=== PATIENT | female | born 1970 | race Caucasian/White ===

== ENCOUNTER 2020-11-30 14:17 | Inpatient (IN) ==
[2020-11-30] MEDS ORDERED: SODIUM CHLORIDE 0.9% 1000ML 1,000 ML IV ONE (14:37)
[2020-11-30] MEDS ORDERED: ONDANSETRON INJ 2 MG/ML 2 ML VIAL IV STA (14:37)
[2020-11-30] MEDS ORDERED: KETOROLAC TROMETHAMINE 15 MG/ML VIAL IV STA (14:37)
[2020-11-30 14:44] LABS: Basophils # (auto) 0.05 K/uL (0-0.2); Basophils % (auto) 0.4 %; Eosinophils # (auto) 0.36 K/uL (0-0.5); Eosinophils % (auto) 3.1 %; Hemoglobin 13.9 g/dL (12.0-16.0); Immature Granulocytes # (auto) 0.03 K/uL (0.00-0.02); Immature Granulocytes % (auto) 0.3 %; Lymphocytes # (auto) 3.93 K/uL (1.2-3.4); Lymphocytes % (auto) 34.3 %; Mean Corpuscular Hemoglobin 29.1 pg (25-34); Mean Corpuscular Hgb Conc 33.1 g/dL (32-36); Mean Corpuscular Volume 87.9 fL (80-100); Mean Platelet Volume 9.9 fL (7.4-10.4); Monocytes # (auto) 0.67 K/uL (0.11-0.59); Monocytes % (auto) 5.8 %; Neutrophils # (auto) 6.42 K/uL (1.4-6.5); Neutrophils % (auto) 56.1 %; Platelet Count 458 K/uL (130-400); RDW Coefficient of Variation 12.5 % (11.5-14.5); RDW Standard Deviation 40.3 fL (36.4-46.3); Red Blood Count 4.78 M/uL (4.2-5.4); White Blood Count 11.46 K/uL (4.8-10.8)
[2020-11-30 15:02] LABS: Albumin Level 3.3 gm/dl (3.4-5.0); BUN Creatinine Ratio 14.6 (10-20); Bilirubin Direct 0.1 mg/dl (0-0.2); Calcium 9.1 mg/dl (8.5-10.1); Creatinine Clr Calc Pharmacy 72.8 ml/min; Est GFR (African American) 74.3 ml/min; Est GFR (Non-African American) 64.1 ml/min
[2020-11-30 15:05] LABS: Bilirubin,Total 0.3 mg/dl (0.2-1); Total Protein 7.5 gm/dl (6.4-8.2)
[2020-11-30 15:06] LABS: Appearance Urine Cloudy (Clear); Bacteria Urine Automated Negative (Negative); Bilirubin Urine Negative (Negative); Blood Urine 3+ (Negative); Color Urine Dark Yellow; Epithelial Cell Urine Auto >30 /lpf (0-5); Glucose Urine UA Negative (Negative); Ketones Urine Trace (Negative); Leukocyte Esterase Urine Trace (Negative); Nitrite Urine Negative (Negative); Protein Urine 1+ (Negative); Specific Gravity Urine 1.024 (1.000-1.030); Urobilinogen Urine Negative (Negative); pH Urine 6.5 (4.5-7.5)
[2020-11-30 15:47] LABS: RBC Urine Automated >30 /hpf (0-4)
[2020-11-30 15:48] LABS: Cast Urine Automated 0 /lpf (0-5)
--- NOTE | 2020-11-30 16:02 | CT Scan Report ---
CT SCAN OF THE ABDOMEN AND PELVIS WITHOUT CONTRAST CLINICAL HISTORY: L flank pain dysuria COMPARISON STUDY: No previous studies for comparison. TECHNIQUE: CT scan of the abdomen and pelvis was performed from the lung bases to the proximal femurs . Images are reviewed in the axial, sagittal, and coronal planes. IV contrast was not administered fo r this examination. A dose lowering technique was utilized adhering to the principles of ALARA. CT DOSE: 474.44 mGy.cm FINDINGS: Lower chest: The heart is normal in size and configuration, without pericardial effusion. The lung ba ses and pleural spaces are clear. Liver: The unenhanced liver is normal in size, contour, and attenuation. There is no intrahepatic nikia iary ductal dilatation. Gallbladder: Is surgically absent Spleen: Normal in size and attenuation. Pancreas: Unremarkable. Adrenal glands: Unremarkable. Kidneys: The unenhanced kidneys are normal in. No hydronephrosis or nephrolithiasis is seen on the ri ght. Mild hydronephrosis is seen within left kidney as well as calculus within inferior aspect of the left renal pelvis. There is 8mm calculus within proximal left ureter is seen. Distal aspect of the l eft ureter is nondilated.. Bowel: Bowel loops are nondilated. Appendix is not well seen. Peritoneum: There is no intraperitoneal free air or abdominal ascites. Vasculature: The abdominal aorta is normal in course and caliber. Adenopathy: None. Pelvic viscera: Urinary bladder is partially decompressed which limits evaluation. There is prominent , nodular lower uterine segment is seen. Evaluation is limited on current nondedicated exam. Skeletal structures: Multilevel Schmorl nodes are seen. Sclerotic lesion is seen within right ischial bone (3/401) and might represent enostosis versus other etiology. IMPRESSION: 1. 8 mm obstructive calculus within proximal aspect of the left urinary collecting system associated with minimal hydronephrosis on the left. Also calculus is seen within left renal pelvis. 2. Prominent lower uterine segment. Evaluation is limited on this nondedicated exam. Please correlat e above-mentioned findings with ALLERGIST IMMUNOLOGIST evaluation on nonemergency basis. ACT 112: Positive. There are findings on this exam that require communication between the performing entity and the patient following Patient Test Result Information Act ([place] Act 112) guidelines. The above report was generated using voice recognition software. It may contain grammatical, syntax o r spelling errors. Electronically signed by: Pepper Munguia DO 11/30/2020 4:01 PM
--- NOTE | 2020-11-30 17:33 | History & Physical Report ---
Date of Service November 30, 2020 Assessment & Plan (1) Calculus of proximal left ureter: 8 mm proximal left ureteral calculus/mild left hydronephrosis- N.p.o. after midnight Follow urine culture sensitivity Ceftriaxone 2 g IV daily [place] 5/325, 1 p.o. every 6 hours as needed moderate pain [place] 5/325, 2 p.o. every 6 hours as needed for severe pain Dilaudid 0.25 mg IV every 3 hours as needed moderate pain Dilaudid 0.5 mg IV every 3 hours as needed severe pain Zofran 4 mg IV every 6 hours as needed NSS + KCl 20 mEq at 100 mils per hour Consult urology Present on Admission?: Yes (2) Hydronephrosis, left: See above Present on Admission?: Yes (3) Multiple sclerosis: Continue usual medications: Duloxetine, gabapentin, modafinil, mag oxide, riboflavin and HRT. Present on Admission?: Yes History of Present Illness Chief Complaint: The patient presents to the emergency department with complaint of acute onset of left flank pain and nausea and vomiting earlier in the day today prior to arrival Primary Care Provider: NO PCP The patient is a 50-year-old female with a past medical history including multiple sclerosis, family history of mother with kidney stones, who presents to the emergency department with above symptoms. Work-up in the emergency department included a CT scan of abdomen pelvis which showed an 8 mm proximal left ureteral calculus and mild left hydronephrosis. There was also noted a prominent lower uterine segment, with recommendation for outpatient MANAGER ADOBE assessment Allergies Allergy/AdvReac Type Severity Reaction Status Date / Time No Known Allergies Allergy Verified 11/30/20 16:09 Home Medications Medication Instructions Recorded Confirmed Type duloxetine 60 mg PO DAILY 11/30/20 11/30/20 History gabapentin 400 mg PO QID 11/30/20 11/30/20 History levonorgestrel-ethinyl estrad 1 tab PO DAILY 11/30/20 11/30/20 History magnesium oxide 400 mg PO DAILY 11/30/20 11/30/20 History modafinil [Provigil] 200 mg PO DAILY 11/30/20 11/30/20 History multivitamin 1 tab PO DAILY 11/30/20 11/30/20 History riboflavin (vitamin B2) 400 mg PO DAILY 11/30/20 11/30/20 History Past Med/Surg History Medical History (Updated 11/30/20 @ 17:32 by Todd Vargas MD) Multiple sclerosis Social History Smoking Status: Never smoker Feels Safe at Home: Yes Review of Systems Review of Systems: The patient denies chest pain, palpitations, shortness of breath, dyspnea on exertion, cough, lower extremity swelling, sore throat, fevers, chills, sweats, diarrhea , constipation, blood in urine or stool, dysuria, urinary frequency or urgency, lightheadedness, dizziness, headache, memory loss, loss of consciousness, rash, abnormal bruising or bleeding, imbalance, focal or generalized weakness, numbness or tingling in arms or legs, generalized arthralgias or myalgias, neck pain, or night sweats. The review of systems is otherwise negative other than for that already noted above, and at least 10 systems have been reviewed. Physical Exam Physical Exam: The patient is awake, alert and oriented 3, well developed and well nourished, normocephalic and atraumatic, lying in bed and in no acute distress. HEENT--PERRL, EOMI, mucous membranes and oropharynx normal. Neck--supple. No JVD. No bruits. Thyroid normal, trachea midline, no adenopathy. Heart--normal S1 and S2. No murmurs, rubs or gallops. Lungs--clear bilaterally, no respiratory distress, no accessory muscle use. Abdomen--normal bowel sounds and soft. Nontender. Nondistended. Mildly obese Extremities--no cyanosis or clubbing. No edema. Dermatologic--normal skin turgor, normal color, no abnormal lymph nodes, no rash. Neurologic--cranial nerves II through XII grossly intact. Rheumatologic--normal range of motion. Psychiatric--normal affect. Results & Data Results & Data ([facility]) Vital Signs (Past 12 Hours) Vital Signs Temp Pulse Resp BP Pulse Ox 11/30/20 14:19 97.7 F 113 H 18 169/79 H 97 Laboratory Results Laboratory Results WBC 11.46 K/uL (4.8-10.8) H 11/30/20 14:35 RBC 4.78 M/uL (4.2-5.4) 11/30/20 14:35 Hgb 13.9 g/dL (12.0-16.0) 11/30/20 14:35 Hct 42.0 % (37-47) 11/30/20 14:35 MCV 87.9 fL (80-100) 11/30/20 14:35 MCH 29.1 pg (25-34) 11/30/20 14:35 MCHC 33.1 g/dL (32-36) 11/30/20 14:35 RDW Std Deviation 40.3 fL (36.4-46.3) 11/30/20 14:35 RDW Coeff of Janna 12.5 % (11.5-14.5) 11/30/20 14:35 Plt Count 458 K/uL (130-400) H 11/30/20 14:35 MPV 9.9 fL (7.4-10.4) 11/30/20 14:35 Immature Gran % (Auto) 0.3 % 11/30/20 14:35 Neut % (Auto) 56.1 % 11/30/20 14:35 Lymph % (Auto) 34.3 % 11/30/20 14:35 [place] % (Auto) 5.8 % 11/30/20 14:35 Eos % (Auto) 3.1 % 11/30/20 14:35 Baso % (Auto) 0.4 % 11/30/20 14:35 Neut # (Auto) 6.42 K/uL (1.4-6.5) 11/30/20 14:35 Lymph # (Auto) 3.93 K/uL (1.2-3.4) H 11/30/20 14:35 [place] # (Auto) 0.67 K/uL (0.11-0.59) H 11/30/20 14:35 Eos # (Auto) 0.36 K/uL (0-0.5) 11/30/20 14:35 Baso # (Auto) 0.05 K/uL (0-0.2) 11/30/20 14:35 Immature Gran # (Auto) 0.03 K/uL (0.00-0.02) H 11/30/20 14:35 Sodium 139 mmol/L (136-145) 11/30/20 14:35 Potassium 4.0 mmol/L (3.5-5.1) 11/30/20 14:35 Chloride 107 mmol/L (98-107) 11/30/20 14:35 Carbon Dioxide 29 mmol/L (21-32) 11/30/20 14:35 Anion Gap 3.0 (3-11) 11/30/20 14:35 BUN 15 mg/dl (7-18) 11/30/20 14:35 Creatinine 1.02 mg/dl (0.6-1.2) 11/30/20 14:35 Est Cr Clr Drug Dosing 72.8 ml/min 11/30/20 14:35 Est GFR ( Amer) 74.3 ml/min 11/30/20 14:35 Est GFR (Non-Af Amer) 64.1 ml/min 11/30/20 14:35 BUN/Creatinine Ratio 14.6 (10-20) 11/30/20 14:35 Glucose 120 mg/dl (70-99) H 11/30/20 14:35 Calcium 9.1 mg/dl (8.5-10.1) 11/30/20 14:35 Total Bilirubin 0.3 mg/dl (0.2-1) 11/30/20 14:35 Direct Bilirubin 0.1 mg/dl (0-0.2) 11/30/20 14:35 AST 9 U/L (15-37) L 11/30/20 14:35 ALT 17 U/L (12-78) 11/30/20 14:35 Alkaline Phosphatase 119 U/L (45-117) H 11/30/20 14:35 Total Protein 7.5 gm/dl (6.4-8.2) 11/30/20 14:35 Albumin 3.3 gm/dl (3.4-5.0) L 11/30/20 14:35 Lipase 167 U/L (73-393) 11/30/20 14:35 Urine Color Dark Yellow 11/30/20 14:45 Urine Appearance Cloudy (Clear) A 11/30/20 14:45 Urine pH 6.5 (4.5-7.5) 11/30/20 14:45 Ur Specific [place] 1.024 (1.000-1.030) 11/30/20 14:45 Urine Protein 1+ (Negative) H 11/30/20 14:45 Urine Glucose (UA) Negative (Negative) 11/30/20 14:45 Urine Ketones Trace (Negative) H 11/30/20 14:45 Urine Blood 3+ (Negative) H 11/30/20 14:45 Urine Nitrite Negative (Negative) 11/30/20 14:45 Urine Bilirubin Negative (Negative) 11/30/20 14:45 Urine Urobilinogen Negative (Negative) 11/30/20 14:45 Ur Leukocyte Esterase Trace (Negative) H 11/30/20 14:45 Urine WBC (Auto) 1-5 /hpf (0-5) 11/30/20 14:45 Urine RBC (Auto) >30 /hpf (0-4) H 11/30/20 14:45 U Hyaline Cast (Auto) 0 /lpf (0-5) 11/30/20 14:45 U Epithel Cells (Auto) >30 /lpf (0-5) H 11/30/20 14:45 Urine Bacteria (Auto) Negative (Negative) 11/30/20 14:45 Urine Yeast Not Reportable 11/30/20 14:45 POC Ur Test NEG (NEG) 11/30/20 14:45 COVID-19 Eval Order Covid19 at [facility] 11/30/20 17:15 Impressions Abdomen/Pelvis CT 11/30/20 14:37 CT SCAN OF THE ABDOMEN AND PELVIS WITHOUT CONTRAST CLINICAL HISTORY: L flank pain dysuria COMPARISON STUDY: No previous studies for comparison. TECHNIQUE: CT scan of the abdomen and pelvis was performed from the lung bases to the proximal femurs. Images are reviewed in the axial, sagittal, and coronal planes. IV contrast was not administered for this examination. A dose lowering technique was utilized adhering to the principles of ALARA. CT DOSE: 474.44 mGy.cm FINDINGS: Lower chest: The heart is normal in size and configuration, without pericardial effusion. The lung bases and pleural spaces are clear. Liver: The unenhanced liver is normal in size, contour, and attenuation. There is no intrahepatic biliary ductal dilatation. Gallbladder: Is surgically absent Spleen: Normal in size and attenuation. Pancreas: Unremarkable. Adrenal glands: Unremarkable. Kidneys: The unenhanced kidneys are normal in. No hydronephrosis or nephrolithiasis is seen on the right. Mild hydronephrosis is seen within left kidney as well as calculus within inferior aspect of the left renal pelvis. There is 8mm calculus within proximal left ureter is seen. Distal aspect of the left ureter is nondilated.. Bowel: Bowel loops are nondilated. Appendix is not well seen. Peritoneum: There is no intraperitoneal free air or abdominal ascites. Vasculature: The abdominal aorta is normal in course and caliber. Adenopathy: None. Pelvic viscera: Urinary bladder is partially decompressed which limits evaluation. There is prominent, nodular lower uterine segment is seen. Evaluation is limited on current nondedicated exam. Skeletal structures: Multilevel Schmorl nodes are seen. Sclerotic lesion is seen within right ischial bone (3/401) and might represent enostosis versus other etiology. IMPRESSION: 1. 8 mm obstructive calculus within proximal aspect of the left urinary collecting system associated with minimal hydronephrosis on the left. Also calculus is seen within left renal pelvis. 2. Prominent lower uterine segment. Evaluation is limited on this nondedicated exam. Please correlate above-mentioned findings with MANAGER ADOBE evaluation on nonemergency basis. ACT 112: Positive. There are findings on this exam that require communication between the performing entity and the patient following Patient Test Result Information Act ([place] Act 112) guidelines. The above report was generated using voice recognition software. It may contain grammatical, syntax or spelling errors. Electronically signed by: Pepper Munguia DO 11/30/2020 4:01 PM Code Status & VTE Plan Code Status Full code VTE Prophylaxis Plan VTE Prophylaxis will be ordered: Yes PG Care Time/CCT Total # of Minutes Spent Total Time Spent with Patient: Total time spent is greater than 50% in coordination of care (as documented) at patient's floor/unit and/or counseling patient: Coding Level of Care Code 86714 Initial Inpt Care Lvl 2 Diagnoses Calculus of proximal left ureter N20.1 Hydronephrosis, left N13.30 Multiple sclerosis G35
--- NOTE | 2020-11-30 18:15 | Emergency Department Note ---
History of Present Illness General Chief Complaint: Flank Pain Stated Complaint: LEFT SIDED FLANK PAIN,NAUSEA Time Seen by Provider: 11/30/20 14:23 History of Present Illness Provider Complaint: flank pain (L) Onset (ago): 1 week(s) Pain Consistency: intermittent Location: L flank Severity: moderate Maximum Pain Intensity: 8 Current Pain Intensity: 6 Quality: + stabbing and + sharp Relieved By: + nothing Exacerbated By: + nothing Context: no foreign travel, no possible food poisoning, no sick contacts, no recent antibiotic use, no recent surgery/procedure and no recent injury Associated Symptoms: + nausea, + vomiting, + dysuria and + back pain; no diarrhea, no fever, no chills, no constipation, no hematemesis, no hematochezia, no melena, no hematuria, no anorexia, no syncope, no headache, no neck pain, no chest pain, no weakness and no numbness Home Medications Medication Instructions Recorded Confirmed Type duloxetine 60 mg PO DAILY 11/30/20 11/30/20 History gabapentin 400 mg PO QID 11/30/20 11/30/20 History levonorgestrel-ethinyl estrad 1 tab PO DAILY 11/30/20 11/30/20 History magnesium oxide 400 mg PO DAILY 11/30/20 11/30/20 History modafinil [Provigil] 200 mg PO DAILY 11/30/20 11/30/20 History multivitamin 1 tab PO DAILY 11/30/20 11/30/20 History riboflavin (vitamin B2) 400 mg PO DAILY 11/30/20 11/30/20 History Allergies Allergy/AdvReac Type Severity Reaction Status Date / Time No Known Allergies Allergy Verified 11/30/20 16:09 Past Med/Surg History Medical History Multiple sclerosis No pertinent family history Surgical History No pertinent past surgical history Social History Smoking Status: Never smoker Feels Safe at Home: Yes Review of Systems A total of 10 systems reviewed and were otherwise negative Physical Exam Vital Signs: Vital Signs - 24 hr 11/30/20 14:19 11/30/20 16:17 Temperature 36.5 C Temperature Source Temporal Artery Sc an Pulse Rate 113 H Pulse Rate [Finger ] 82 Pulse Rhythm Regular Pulse Strength Normal Respiratory Rate 18 20 Respiratory Effort / Characteristics Non-Labored Sponta neous Respiratory Depth Normal Blood Pressure 169/79 H Blood Pressure [Le ft Arm] 138/88 Blood Pressure Raisa n 109 Blood Pressure Raisa n [Left Arm] 104 Pulse Oximetry 97 98 Oxygen Delivery Me thod Room Air Sepsis Recent Feve r Within 48 Hours No Sepsis New/Unexpla ined Change in Men buffy Status No Sepsis Action Take n by Nursing No Action Required Physical Exam: Physical Exam GENERAL: She is oriented to person, place, and time. She appears well-developed and well-nourished. She does not appear distressed. HENT: Exam performed. -Head: Normocephalic and atraumatic. -Right Ear: External ear normal. No mastoid tenderness. -Left Ear: External ear normal. No mastoid tenderness. -Mouth/Throat: The oropharynx is clear and moist. No trismus in the jaw. No dental abscesses or uvula swelling. No oropharyngeal exudate or tonsillar abscesses. EYES: Conjunctivae and EOM are normal. Pupils are equal, round, and reactive to light. Right eye exhibits no discharge. Left eye exhibits no discharge. No scleral icterus. NECK: Normal range of motion. Neck supple. No JVD present. No spinous process tenderness present. No carotid bruit present. No rigidity. No tracheal deviation and normal range of motion present. No Brudzinski's sign and no Kernig's sign noted. CV: Normal rate, regular rhythm, normal heart sounds and intact distal pulses. There is no peripheral edema. Palpable radial pulses bue. PULM/CHEST: Effort normal and breath sounds normal. No respiratory distress. No stridor. She has no wheezes. She has no rales. -Chest Wall: She exhibits no tenderness. ABD: The abdomen is soft. Bowel sounds are normal. She has no distension. No mass is present. There is no tenderness. There is no rebound, no guarding, no Little's sign and no tenderness at McBurney's point. Rovsig negative MUSC/SKEL: Normal range of motion. There is no peripheral edema, tenderness or deformity. LYMPH: No cervical adenopathy. NEURO: She is alert and oriented to person, place, and time. She has normal strength. No cranial nerve deficit or sensory deficit. Coordination and gait normal. GCS eye subscore is 4. GCS verbal subscore is 5. GCS motor subscore is 6. Cerebellar tests wnl. SKIN: Skin is warm and dry. She is not diaphoretic. PSYCH: She has a normal mood and affect. Behavior is normal. Judgment and thought content normal. Course Course 1423: The patient was evaluated in room C11. A complete history and physical exam was performed Cardiac monitoring: An order was placed for continuous cardiac monitoring. The monitor shows a rate of 80 with sinus rhythm 1635: Vital signs stable. Labs show a 8 mm kidney stone in left ureter with resulting hydroureteronephrosis. Patient states her pain is better after the Toradol and Zofran but she is afraid that the pain will return. Is unlikely the patient will pass the stone on her own. Patient does not have good follow-up as she has no PCP in the area or history of kidney stones and her urologist. [facility] for [facility] control and urology evaluation. Dr. Nelson notified. Administered Medications Discontinued Medications Sodium Chloride (Nss 1000ml) 1,000 mls @ 999 mls/hr IV .Q1H1M ONE Stop: 11/30/20 15:37 Last Infusion: 11/30/20 15:50 Dose: 0 mls/hr Documented by: [id number] Admin: 11/30/20 14:48 Dose: 999 mls/hr Documented by: [id number] Ketorolac Tromethamine (Ketorolac Tromethamine 15 Mg/Ml Vial) 15 mg IV NOW STA Stop: 11/30/20 14:38 Last Admin: 11/30/20 14:48 Dose: 15 mg Documented by: [id number] Ondansetron HCl (Ondansetron Inj 2 Mg/Ml 2 Ml Vial) 4 mg IV NOW STA Stop: 11/30/20 14:38 Last Admin: 11/30/20 14:48 Dose: 4 mg Documented by: [id number] Medical Decision Making Laboratory Data Result diagrams: 11/30/20 14:35 11/30/20 14:35 Lab Results 11/30/20 11/30/20 11/30/20 Range/Units 14:35 14:35 14:45 WBC 11.46 H (4.8-10.8) K/uL RBC 4.78 (4.2-5.4) M/uL Hgb 13.9 (12.0-16.0) g/dL Hct 42.0 (37-47) % MCV 87.9 (80-100) fL MCH 29.1 (25-34) pg MCHC 33.1 (32-36) g/dL RDW Std Deviation 40.3 (36.4-46.3) fL RDW Coeff of Janna 12.5 (11.5-14.5) % Plt Count 458 H (130-400) K/uL MPV 9.9 (7.4-10.4) fL Immature Gran % (Auto) 0.3 % Neut % (Auto) 56.1 % Lymph % (Auto) 34.3 % [place] % (Auto) 5.8 % Eos % (Auto) 3.1 % Baso % (Auto) 0.4 % Neut # (Auto) 6.42 (1.4-6.5) K/uL Lymph # (Auto) 3.93 H (1.2-3.4) K/uL [place] # (Auto) 0.67 H (0.11-0.59) K/uL Eos # (Auto) 0.36 (0-0.5) K/uL Baso # (Auto) 0.05 (0-0.2) K/uL Immature Gran # (Auto) 0.03 H (0.00-0.02) K/uL Sodium 139 (136-145) mmol/L Potassium 4.0 (3.5-5.1) mmol/L Chloride 107 (98-107) mmol/L Carbon Dioxide 29 (21-32) mmol/L Anion Gap 3.0 (3-11) BUN 15 (7-18) mg/dl Creatinine 1.02 (0.6-1.2) mg/dl Est Cr Clr Drug Dosing 72.8 ml/min Est GFR ( Amer) 74.3 ml/min Est GFR (Non-Af Amer) 64.1 ml/min BUN/Creatinine Ratio 14.6 (10-20) Glucose 120 H (70-99) mg/dl Calcium 9.1 (8.5-10.1) mg/dl Total Bilirubin 0.3 (0.2-1) mg/dl Direct Bilirubin 0.1 (0-0.2) mg/dl AST 9 L (15-37) U/L ALT 17 (12-78) U/L Alkaline Phosphatase 119 H (45-117) U/L Total Protein 7.5 (6.4-8.2) gm/dl Albumin 3.3 L (3.4-5.0) gm/dl Lipase 167 (73-393) U/L Urine Color Dark Yellow Urine Appearance Cloudy A (Clear) Urine pH 6.5 (4.5-7.5) Ur Specific [place] 1.024 (1.000-1.030) Urine Protein 1+ H (Negative) Urine Glucose (UA) Negative (Negative) Urine Ketones Trace H (Negative) Urine Blood 3+ H (Negative) Urine Nitrite Negative (Negative) Urine Bilirubin Negative (Negative) Urine Urobilinogen Negative (Negative) Ur Leukocyte Esterase Trace H (Negative) Urine WBC (Auto) 1-5 (0-5) /hpf Urine RBC (Auto) >30 H (0-4) /hpf U Hyaline Cast (Auto) 0 (0-5) /lpf U Epithel Cells (Auto) >30 H (0-5) /lpf Urine Bacteria (Auto) Negative (Negative) Urine Yeast Not Reportable POC Ur Test (NEG) COVID-19 Eval Order 11/30/20 11/30/20 Range/Units 14:45 17:15 WBC (4.8-10.8) K/uL RBC (4.2-5.4) M/uL Hgb (12.0-16.0) g/dL Hct (37-47) % MCV (80-100) fL MCH (25-34) pg MCHC (32-36) g/dL RDW Std Deviation (36.4-46.3) fL RDW Coeff of Janna (11.5-14.5) % Plt Count (130-400) K/uL MPV (7.4-10.4) fL Immature Gran % (Auto) % Neut % (Auto) % Lymph % (Auto) % [place] % (Auto) % Eos % (Auto) % Baso % (Auto) % Neut # (Auto) (1.4-6.5) K/uL Lymph # (Auto) (1.2-3.4) K/uL [place] # (Auto) (0.11-0.59) K/uL Eos # (Auto) (0-0.5) K/uL Baso # (Auto) (0-0.2) K/uL Immature Gran # (Auto) (0.00-0.02) K/uL Sodium (136-145) mmol/L Potassium (3.5-5.1) mmol/L Chloride (98-107) mmol/L Carbon Dioxide (21-32) mmol/L Anion Gap (3-11) BUN (7-18) mg/dl Creatinine (0.6-1.2) mg/dl Est Cr Clr Drug Dosing ml/min Est GFR ( Amer) ml/min Est GFR (Non-Af Amer) ml/min BUN/Creatinine Ratio (10-20) Glucose (70-99) mg/dl Calcium (8.5-10.1) mg/dl Total Bilirubin (0.2-1) mg/dl Direct Bilirubin (0-0.2) mg/dl AST (15-37) U/L ALT (12-78) U/L Alkaline Phosphatase (45-117) U/L Total Protein (6.4-8.2) gm/dl Albumin (3.4-5.0) gm/dl Lipase (73-393) U/L Urine Color Urine Appearance (Clear) Urine pH (4.5-7.5) Ur Specific [place] (1.000-1.030) Urine Protein (Negative) Urine Glucose (UA) (Negative) Urine Ketones (Negative) Urine Blood (Negative) Urine Nitrite (Negative) Urine Bilirubin (Negative) Urine Urobilinogen (Negative) Ur Leukocyte Esterase (Negative) Urine WBC (Auto) (0-5) /hpf Urine RBC (Auto) (0-4) /hpf U Hyaline Cast (Auto) (0-5) /lpf U Epithel Cells (Auto) (0-5) /lpf Urine Bacteria (Auto) (Negative) Urine Yeast POC Ur Test NEG (NEG) COVID-19 Eval Order Covid19 at [facility] Imaging Data Radiologist's Impression: Abdomen/Pelvis CT 11/30/20 14:37 CT SCAN OF THE ABDOMEN AND PELVIS WITHOUT CONTRAST CLINICAL HISTORY: L flank pain dysuria COMPARISON STUDY: No previous studies for comparison. TECHNIQUE: CT scan of the abdomen and pelvis was performed from the lung bases to the proximal femurs. Images are reviewed in the axial, sagittal, and coronal planes. IV contrast was not administered for this examination. A dose lowering technique was utilized adhering to the principles of ALARA. CT DOSE: 474.44 mGy.cm FINDINGS: Lower chest: The heart is normal in size and configuration, without pericardial effusion. The lung bases and pleural spaces are clear. Liver: The unenhanced liver is normal in size, contour, and attenuation. There is no intrahepatic biliary ductal dilatation. Gallbladder: Is surgically absent Spleen: Normal in size and attenuation. Pancreas: Unremarkable. Adrenal glands: Unremarkable. Kidneys: The unenhanced kidneys are normal in. No hydronephrosis or nephrolithiasis is seen on the right. Mild hydronephrosis is seen within left kidney as well as calculus within inferior aspect of the left renal pelvis. There is 8mm calculus within proximal left ureter is seen. Distal aspect of the left ureter is nondilated.. Bowel: Bowel loops are nondilated. Appendix is not well seen. Peritoneum: There is no intraperitoneal free air or abdominal ascites. Vasculature: The abdominal aorta is normal in course and caliber. Adenopathy: None. Pelvic viscera: Urinary bladder is partially decompressed which limits evaluation. There is prominent, nodular lower uterine segment is seen. Evaluation is limited on current nondedicated exam. Skeletal structures: Multilevel Schmorl nodes are seen. Sclerotic lesion is seen within right ischial bone (3/401) and might represent enostosis versus other etiology. IMPRESSION: 1. 8 mm obstructive calculus within proximal aspect of the left urinary collecting system associated with minimal hydronephrosis on the left. Also calculus is seen within left renal pelvis. 2. Prominent lower uterine segment. Evaluation is limited on this nondedicated exam. Please correlate above-mentioned findings with [employer] WELL[employer] COORDINATOR evaluation on nonemergency basis. ACT 112: Positive. There are findings on this exam that require communication between the performing entity and the patient following Patient Test Result Information Act ([place] Act 112) guidelines. The above report was generated using voice recognition software. It may contain grammatical, syntax or spelling errors. Electronically signed by: Pepper Munguia DO 11/30/2020 4:01 PM MDM Narrative Vital signs stable. Labs show a 8 mm kidney stone in left ureter with resulting hydroureteronephrosis. Patient states her pain is better after the Toradol and Zofran but she is afraid that the pain will return. Is unlikely the patient will pass the stone on her own. Patient does not have good follow-up as she has no PCP in the area or history of kidney stones and her urologist. Patient be admitted to the [facility] hospitalist team for pain control and urology evaluation. Dr. Nelson notified. Impression & Plan Calculus of proximal left ureter, Hydronephrosis, left Discharge Plan Visit Data Chief Complaint: Flank Pain Stated Complaint: LEFT SIDED FLANK PAIN,NAUSEA ED Provider: Dom Gay Discharge Problem: Calculus of proximal left ureter, Hydronephrosis, left Patient Disposition: Being Evaluated by Hospitalist Forms Stand Alone Forms: [facility] Prescriptions Prescriptions: No Action multivitamin Tablet 1 tab PO DAILY RF: 0 gabapentin 400 mg capsule 400 mg PO QID RF: 0 modafinil [Provigil] 200 mg Tablet 200 mg PO DAILY RF: 0 duloxetine 60 mg capsule,delayed release(DR/EC) 60 mg PO DAILY RF: 0 levonorgestrel-ethinyl estrad 90-20 mcg (28) tablet 1 tab PO DAILY RF: 0 riboflavin (vitamin B2) 400 mg Tablet 400 mg PO DAILY RF: 0 magnesium oxide 400 mg magnesium Tablet 400 mg PO DAILY RF: 0 Referrals Referrals: PCP,NO [Primary Care Provider] -
[2020-11-30] MEDS ORDERED: HYDROCODONE/ACETAMOPHEN 5/325MG TAB PO PRN ×2 (19:49)
[2020-11-30] MEDS ORDERED: ACETAMINOPHEN 325 MG TAB PO PRN (19:49)
[2020-11-30] MEDS ORDERED: HYDROmorphone INJ 0.5 MG/0.5 ML SYR IV PRN (19:49)
[2020-11-30] MEDS: DULoxetine HCL 60 MG CAP PO SCH (20:22)
[2020-11-30] MEDS: NSS + 20MEQ KCL 20 MEQ/1,000 ML BAG IV SCH (20:43)
[2020-11-30] MEDS: ONDANSETRON INJ 2 MG/ML 2 ML VIAL IV PRN (20:43)
[2020-11-30] MEDS: cefTRIAXone SODIUM 2,000 MG in DEXTROSE 5% 50 ML IV SCH (20:43)
[2020-11-30] MEDS: HYDROmorphone INJ 0.5 MG/0.5 ML SYR IV PRN (20:43)
[2020-11-30] MEDS: GABAPENTIN 400 MG CAP PO SCH (22:51)
[2020-12-01] MEDS: HYDROmorphone INJ 0.5 MG/0.5 ML SYR IV PRN ×4 (01:30→23:40)
[2020-12-01 06:41] LABS: Hematocrit (blood only) 40.3 % (37-47); Mean Corpuscular Hemoglobin 29.4 pg (25-34); Mean Corpuscular Hgb Conc 32.3 g/dL (32-36); Mean Corpuscular Volume 91.2 fL (80-100); Platelet Count 469 K/uL (130-400); RDW Coefficient of Variation 12.5 % (11.5-14.5); Red Blood Count 4.42 M/uL (4.2-5.4); White Blood Count 15.82 K/uL (4.8-10.8)
[2020-12-01 06:57] LABS: Albumin Level 2.9 gm/dl (3.4-5.0); BUN Creatinine Ratio 17.3 (10-20); Calcium 8.4 mg/dl (8.5-10.1); Creatinine Clr Calc Pharmacy 75.1 ml/min; Est GFR (Non-African American) 66.4 ml/min; Potassium 4.2 mmol/L (3.5-5.1)
[2020-12-01 07:00] LABS: Albumin Globulin Ratio 0.8 (0.9-2); Bilirubin,Total 0.3 mg/dl (0.2-1); Globulin 3.8 gm/dl (2.5-4.0); Total Protein 6.7 gm/dl (6.4-8.2)
[2020-12-01] MEDS: NSS + 20MEQ KCL 20 MEQ/1,000 ML BAG IV SCH ×2 (07:05→20:18)
[2020-12-01 07:08] LABS: Basophils # (auto) 0.05 K/uL (0-0.2); Basophils % (auto) 0.3 %; Eosinophils # (auto) 0.54 K/uL (0-0.5); Eosinophils % (auto) 3.4 %; Immature Granulocytes # (auto) 0.02 K/uL (0.00-0.02); Immature Granulocytes % (auto) 0.1 %; Lymphocytes % (auto) 44.9 %; Monocytes % (auto) 5.7 %; Neutrophils # (auto) 7.21 K/uL (1.4-6.5); Neutrophils % (auto) 45.6 %
[2020-12-01] MEDS ORDERED: NON-FORMULARY MEDICATION (Riboflavin (Vitamin B2) 400 mg Tablet) PO SCH (09:00)
[2020-12-01] MEDS: ONDANSETRON INJ 2 MG/ML 2 ML VIAL IV PRN ×2 (09:01→16:34)
[2020-12-01] MEDS: DULoxetine HCL 60 MG CAP PO SCH (09:16)
[2020-12-01] MEDS: MULTIVITAMIN TAB PO SCH (09:16)
[2020-12-01] MEDS: MAGNESIUM OXIDE 400 MG TAB PO SCH (09:16)
[2020-12-01] MEDS: modafiniL 100 MG TAB PO SCH (09:27)
[2020-12-01] MEDS: GABAPENTIN 400 MG CAP PO SCH ×4 (09:28→22:21)
--- NOTE | 2020-12-01 10:00 | Anesthesiology Consultation ---
Date of Service December 01, 2020 Assessment & Plan (1) Encounter for pre-operative examination: Chart Review Chart Review: entry level accountant initiated History Surgery Operation Date: 12/01/20 10:00 Proposed Procedures p Cystoscopy - DO kaylie Christopher Ureteral Stent Insertion/Removal - DO kaylie Christopher Laser Lithotripsy Holmium - Can Saul DO Height/Weight Height: 5 ft 6 in Weight: 86.1 kg Allergies Allergy/AdvReac Type Severity Reaction Status Date / Time No Known Allergies Allergy Verified 11/30/20 16:09 Medications Home Medications Medication Instructions Recorded Confirmed Last Taken duloxetine 60 mg PO DAILY 11/30/20 11/30/20 11/30/20 gabapentin 400 mg PO QID 11/30/20 11/30/20 11/30/20 12:00 levonorgestrel-ethinyl estrad 1 tab PO DAILY 11/30/20 11/30/20 11/30/20 magnesium oxide 400 mg PO DAILY 11/30/20 11/30/20 11/30/20 modafinil [Provigil] 200 mg PO DAILY 11/30/20 11/30/20 11/30/20 multivitamin 1 tab PO DAILY 11/30/20 11/30/20 11/30/20 riboflavin (vitamin B2) 400 mg PO DAILY 11/30/20 11/30/20 11/30/20 Active Medications Generic Name Dose Route Start Last Admin Trade Name Freq PRN Reason Stop Dose Admin Duloxetine HCl 60 mg 11/30/20 20:00 12/01/20 09:16 Duloxetine Hcl 60 Mg Cap PO 12/30/20 19:59 Not Given DAILY HERBERT Gabapentin 400 mg 11/30/20 21:00 12/01/20 09:28 Gabapentin 400 Mg Cap PO 12/30/20 20:59 400 mg QID HERBERT Administration Hydromorphone HCl 0.5 mg 11/30/20 19:49 12/01/20 09:09 Hydromorphone Inj 0.5 Mg/0.5 Ml Syr IV 12/14/20 19:48 0.5 mg Q3H PRN Administration Severe Pain Ceftriaxone Sodium 2,000 mg/ 70 mls @ 100 mls/hr 11/30/20 20:00 11/30/20 21:36 Dextrose IV 12/10/20 19:59 Infused Q24H HERBERT Infusion Protocol Potassium Chloride/Sodium Chloride 20 meq in 1,000 mls @ 100 mls/hr 11/30/20 20:00 12/01/20 07:05 Normal Saline W/20 Meq Kcl IV 12/30/20 19:59 100 mls/hr .Q10H HERBERT Administration Magnesium Oxide 400 mg 12/01/20 09:00 12/01/20 09:16 Magnesium Oxide 400 Mg Tab PO 12/31/20 08:59 Not Given DAILY HERBERT Miscellaneous 1 ea 12/01/20 00:00 12/01/20 09:15 Order Awaiting Action N/A 12/31/20 00:00 Not Given QS HERBERT Modafinil 200 mg 12/01/20 09:00 12/01/20 09:27 Modafinil 100 Mg Tab PO 12/31/20 08:59 200 mg DAILY HERBERT Administration Multivitamins 1 tab 12/01/20 09:00 12/01/20 09:16 Multivitamin Tab PO 12/31/20 08:59 Not Given DAILY HERBERT Ondansetron HCl 4 mg 11/30/20 19:49 12/01/20 09:01 Ondansetron Inj 2 Mg/Ml 2 Ml Vial IV 12/30/20 19:48 4 mg Q6H PRN Administration Nausea Past Medical History Medical History Multiple sclerosis No pertinent family history Past Surgical History Surgical History No pertinent past surgical history Social History Smoking Status: Never smoker Hx Alcohol Use: No Hx Substance Use: No Physical Exam Vital Signs Last Vital Signs Temp 97.9 F 12/01/20 07:18 Pulse 89 12/01/20 07:18 Resp 16 12/01/20 07:18 BP 112/69 12/01/20 07:18 Pulse Ox 97 12/01/20 07:18 Testing Laboratory Results 12/01/20 05:44 12/01/20 05:44 Urine Color Dark Yellow 11/30/20 14:45 Urine Appearance Cloudy (Clear) A 11/30/20 14:45 Urine pH 6.5 (4.5-7.5) 11/30/20 14:45 Ur Specific Bruno 1.024 (1.000-1.030) 11/30/20 14:45 Urine Protein 1+ (Negative) H 11/30/20 14:45 Urine Glucose (UA) Negative (Negative) 11/30/20 14:45 Urine Ketones Trace (Negative) H 11/30/20 14:45 Urine Nitrite Negative (Negative) 11/30/20 14:45 Ur Leukocyte Esterase Trace (Negative) H 11/30/20 14:45 Urine WBC (Auto) 1-5 /hpf (0-5) 11/30/20 14:45 Urine RBC (Auto) >30 /hpf (0-4) H 11/30/20 14:45 U Hyaline Cast (Auto) 0 /lpf (0-5) 11/30/20 14:45 U Epithel Cells (Auto) >30 /lpf (0-5) H 11/30/20 14:45 Urine Bacteria (Auto) Negative (Negative) 11/30/20 14:45 11/30/20 14:45 POC Ur Test NEG Laboratory Tests 11/30/20 17:15 SARS-CoV-2 (PCR) NEGATIVE
--- NOTE | 2020-12-01 10:53 | Urology Consultation ---
Date of Consultation December 01, 2020 Assessment & Plan (1) Hydronephrosis, left: New patient with left flank pain in waves. CT imaging reviewed and interpreted by myself. Proximal stone with hydro on left. Mother had stones as well. Discussed options for conservative measure and maximum expulsion medical therapy and symptom controlled. Discussed ESWL. Discussed Ureteroscopy with extraction and/or laser lithotripsy. Risks and benefits were discussed. Stone free rates were also discussed as well as possibility of multiple procedures. Ureteral stents were discussed as well as post-operative issues and pain management. All questions were answered. Risks and benefits discussed at length for procedure. These include bleeding, infection, injury to surrounding tissues or organs, and risks associated with anesthesia. Patient states understanding and agrees to proceed. Will sign consent and consent Plan to proceed with cystoscopy and possible left stent placement and stone treatment. (2) Calculus of proximal left ureter: (3) Multiple sclerosis: History of Present Illness Attending Physician: Vikas Emmanuel History of Present Illness New consultation for patient with stone, discomfort, obstruction, and ill feelings. Patient developed sudden onset of pain into flank going down and radiating into groin and back in waves comes and goes. Can be severe at times. Discussed and reviewed patient's family history for any history of stone disease. Also, discussed patient's medical surgery history especially related to any history of urinary issues or stone disease. Patient was admitted and is undergoing observation. Allergies Allergy/AdvReac Type Severity Reaction Status Date / Time No Known Allergies Allergy Verified 11/30/20 16:09 Home Medications Medication Instructions Recorded Confirmed Type duloxetine 60 mg PO DAILY 11/30/20 11/30/20 History gabapentin 400 mg PO QID 11/30/20 11/30/20 History levonorgestrel-ethinyl estrad 1 tab PO DAILY 11/30/20 11/30/20 History magnesium oxide 400 mg PO DAILY 11/30/20 11/30/20 History modafinil [Provigil] 200 mg PO DAILY 11/30/20 11/30/20 History multivitamin 1 tab PO DAILY 11/30/20 11/30/20 History riboflavin (vitamin B2) 400 mg PO DAILY 11/30/20 11/30/20 History Patient History Medical History Multiple sclerosis No pertinent family history Surgical History No pertinent past surgical history Social History Smoking Status: Never smoker Hx Alcohol Use: No Hx Substance Use: No Preferred Language: Cambodian Communication Ability: Effective Foiling Machine Adjuster Required: No Beliefs That Will Affect Care: None Current Living Situation: Spouse and Family Feels Safe at Home: Yes Assistive Devices: Glasses Review of Systems Review of Systems: All systems reviewed & are unremarkable except as noted in HPI & below Physical Exam Physical Exam: General: Alert and oriented x 3 in no acute distress. Patient is well nourished and well kept. HEENT: Normocephalic Atraumatic. Inspection normal. Cranial Nerves 2-12 Grossly intact. Nares are clear. Neck is supple. Normal inspection of face. Normal inspection of neck. Neurologic: No deficits on inspection. Baseline for motor function and sensory. Psychologic: Normal affect. Respiratory: Nonlabored. No use of accessory muscles. No tachypnea or dyspnea. Cardiovascular: No tachycardia Skin: [place] and Dry. No rashes or visible lesions. Extremities: Moving without issues. No motor deficits on inspection Lymphatics: No edema Abdomen: Soft Non-distended. No acites. No rebound or guarding. Results & Data ([facility]) Vital Signs (Past 12 Hours) Vital Signs Temp Pulse Resp BP Pulse Ox 12/01/20 07:18 36.6 C 89 16 112/69 97 PG Care Time/CCT Total # of Minutes Spent Total Time Spent with Patient: Total time spent is greater than 50% in coordination of care (as documented) at patient's floor/unit and/or counseling patient: Coding Level of Care Code 67197 Inpt Consult Level 5 Diagnoses Hydronephrosis, left N13.30 Calculus of proximal left ureter N20.1 Multiple sclerosis G35
[2020-12-01] MEDS ORDERED: ATROPINE SULFATE 0.1 MG/ML 10ML SYR IV PRN (10:54)
[2020-12-01] MEDS ORDERED: ePHEDrine sulfate 50 MG/ML AMP IV PRN (10:54)
[2020-12-01] MEDS ORDERED: fentaNYL citrate 100 MCG/2 ML VIAL IV PRN (10:54)
[2020-12-01] MEDS ORDERED: ONDANSETRON INJ 2 MG/ML 2 ML VIAL IV PRN (10:54)
[2020-12-01] MEDS ORDERED: MIDAZOLAM HCL 1 MG/ML 2ML VIAL ONE (10:56)
[2020-12-01] MEDS ORDERED: fentaNYL citrate 100 MCG/2 ML VIAL ONE (10:56)
[2020-12-01] MEDS ORDERED: KETAMINE 50 MG/5 ML SYRINGE ONE (10:56)
[2020-12-01] MEDS ORDERED: DIATRIZOATE MEGLUMINE 30% 100ML VIAL INSTIL ONE (11:28)
--- NOTE | 2020-12-01 11:30 | Operative Report ---
PG Post Operative Report Pre & Post Diagnosis Left Hydronephrosis with proximal stone Same Operation Date: 12/01/20 10:00 <No data on this case meets the specified criteria> I identified the patient and participated in the time-out.: Yes Procedure Cystoscopy with meatal dilation and left retrograde pyelogram and stent placement. Operation Date: 12/01/20 10:00 <No data on this case meets the specified criteria> Surgeon Can Saul, II, DO Lever Operator None Estimated Blood Loss 1 Findings Consistent with Post-Op Diagnosis Stent placed in good position. Severe stricture of meatus. Dilation required. 18 Fr Coude catheter. Specimens None Drains 6 Fr x 24 Left Stent 18 Fr coude catheter Anesthesia Type MAC Complications none Disposition Disposition: Recovery Room Indications Patient with obstruction. Risks and benefits discussed at length. Description of Procedure Patient was consented and brought back to the operating room. Patient was placed under anesthesia in the supine position and moved to the dorsal lithotomy position. Patient was prepped and draped in the regular sterile fashion. A time out was completed. A 30degree Cystoscope was placed into the bladder after dilating a severe stricture of the meatus. The scope was advanced and the entire bladder was examined. The UO's were identified. The left UO was cannulized with a catheter and a retrograde pyelogram was completed. Stone in proximal ureter. Moderate debris drained with catheter placement. A wire was then placed. With the wire in place, a 6 Fr Double J stent was placed. It was confirmed with fluoroscopy. With the stent in place, the bladder was emptied. The scope was removed. An 18 Fr Coude Coulter was placed. The patient was cleaned, aroused from anesthesia, and transferred to the pacu in stable condition having tolerated the procedure well with no complications. I was present and participated in all aspects of the procedure. The patient will be monitored in the PACU until transferred. Plan 1-2 weeks with stent and antibiotics and stone treatment after. Catheter for 3-5 days after dilation. I attest to the content of the Intraoperative Record and any orders documented therein. Any exceptions are noted below.
--- NOTE | 2020-12-01 11:39 | Fluoroscopy Report ---
FL retrograde includes kub HISTORY: 50 years-old Female LEFT STENT PLACEMENT STATUS post placement of a left ureteral stent COMPARISON: CT abdomen pelvis 11/30/2020 TECHNIQUE: 4 spot fluoroscopic views of the left abdomen were obtained utilizing 27.7 seconds fluoros copy time FINDINGS: Images demonstrate placement of a left ureteral stent which appears to be in satisfactory positioning . There is no significant hydronephrosis. IMPRESSION: Fluoroscopic assistance as above. ACT 112: Negative or not required by law. The above report was generated using voice recognition software. It may contain grammatical, syntax o r spelling errors. Electronically signed by: Chivo Pinedo M.D. 12/01/2020 11:38 AM
--- NOTE | 2020-12-01 11:59 | Anesthesiology Progress Note ---
Date of Service December 01, 2020 Anesthesia Post Procedure Vital Signs Vital Signs: Temp Pulse Pulse Pulse Resp BP BP 12/01/20 11:50 81 16 117/82 12/01/20 11:40 97.5 F L 82 16 127/79 12/01/20 07:18 97.9 F 89 16 112/69 11/30/20 19:57 98.4 F 90 17 125/82 11/30/20 19:00 95 H 16 119/78 11/30/20 18:00 81 16 120/75 11/30/20 16:17 82 20 138/88 11/30/20 14:19 97.7 F 113 H 18 169/79 H Pulse Ox 12/01/20 11:50 98 12/01/20 11:40 98 12/01/20 07:18 97 11/30/20 19:57 99 11/30/20 19:00 98 11/30/20 18:00 98 11/30/20 16:17 98 11/30/20 14:19 97 Pain Intensity Left Flank: Pain Intensity: 6 Transfer of Care Handoff Completed per policy Notes Mental Status: alert / awake / arousable and participated in evaluation Patient Amnestic to Procedure: Yes Nausea / Vomiting: adequately controlled Pain: adequately controlled Airway Patency, RR, SpO2: stable & adequate BP & HR: stable & adequate Hydration State: stable & adequate Anesthetic Complications: no major complications apparent and Pt Satisfied with anesthetic care
[2020-12-01] MEDS: PHENAZOPYRIDINE HCL 100 MG TAB PO PRN ×2 (13:55→22:28)
--- NOTE | 2020-12-01 13:59 | Hospitalist Progress Note ---
Date of Service December 01, 2020 Assessment & Plan (1) Calculus of proximal left ureter: (2) Hydronephrosis, left: Seen by Urology this morning. S/p cystoscopy with left ureteral stent placement with Dr. Saul. -White count trending up this AM to 15.82. UC&S pending. Continue ceftriaxone pe nding sensitivities. Repeat CBC in AM. -Supportive management with Tylenol, Vicodin, Diluadid, Pyridium, and Flomax. -Possible d/c home tomorrow if white count improving and pain controlled. Will need outpatient follow-up with urology for definitive stone management. (3) Multiple sclerosis: Stable. -Continue home meds: Duloxetine, gabapentin, modafinil, mag oxide, riboflavin. (4) Vaginal bleeding: Patient reports vaginal bleeding x 3 weeks. She reports she has been following with REFRIGERATION TECHNICIAN for recurrent uterine bleeding issues. On HRT. -H&H stable at 13.0 and 40.3. -Recommend she follow-up with REFRIGERATION TECHNICIAN as an outpatient for further evaluation and management. Admission and Anticipated Discharge Date Admission Date: November 30, 2020 Subjective 50 year old female admitted to [facility] for renal colic secondary to 8mm proximal left ureteral stone with hydronephrosis. Patient denies pain or n/v this morning. She notes some hematuria, but also notes vaginal bleeding for the past 3 weeks. She sees Ami REFRIGERATION TECHNICIAN at [facility], but has not followed up with them for this issue. Review of Systems Constitutional: no fever and no chills Eyes: no worsening vision Ear, Nose, Mouth, Throat: no dizziness Respiratory: no dyspnea Cardiovascular: no chest pain Gastrointestinal: no abdominal pain, no nausea and no vomiting Psychiatric: no confusion Physical Exam Constitutional: + obese; no acute distress ENMT: Ears: no hearing impairment Neck: trachea midline, no thyromegaly Respiratory: normal respiratory effort, lungs clear to auscultation Cardiovascular: RRR, no murmur, no edema Gastrointestinal (Abdomen): Inspection/Auscultation: normal bowel sounds Percussion/Palpation: abdomen soft; abdomen nontender Psychiatric: A+Ox3, euthymic affect Results & Data Results & Data ([facility]) Vital Signs (Past 12 Hours) Vital Signs Temp Pulse Pulse Resp BP Pulse Ox 12/01/20 13:22 36.9 C 77 16 138/88 98 07/11/21 12:45 36.7 C 79 16 129/86 99 12/01/20 12:15 36.7 C 71 16 120/80 100 12/01/20 12:00 36.2 C L 75 18 125/83 99 12/01/20 11:50 81 16 117/82 98 12/01/20 11:40 36.4 C L 82 16 127/79 98 12/01/20 07:18 36.6 C 89 16 112/69 97 PG Care Time/CCT Total # of Minutes Spent Total Time Spent with Patient: Total time spent is greater than 50% in coordination of care (as documented) at patient's floor/unit and/or counseling patient: Coding Level of Care Code 71940 Subseq Hosp Care Lvl 2 History Expanded Problem Focused Exam Expanded Problem Focused Medical Decision Making Moderate Complexity Diagnoses Calculus of proximal left ureter N20.1 Hydronephrosis, left N13.30 Multiple sclerosis G35 Vaginal bleeding N93.9
[2020-12-01] MEDS ORDERED: Nursing to Pharmacy Communication SCH (14:30)
[2020-12-01] MEDS: cefTRIAXone SODIUM 2,000 MG in DEXTROSE 5% 50 ML IV SCH (20:19)
[2020-12-01] MEDS ORDERED: DULoxetine HCL 60 MG CAP PO SCH (21:00)
[2020-12-01] MEDS ORDERED: TAMSULOSIN HCL 0.4 MG CAP PO SCH (21:00)
[2020-12-02] MEDS: ONDANSETRON INJ 2 MG/ML 2 ML VIAL IV PRN (04:13)
[2020-12-02] MEDS: HYDROmorphone INJ 0.5 MG/0.5 ML SYR IV PRN (04:13)
[2020-12-02] MEDS: NSS + 20MEQ KCL 20 MEQ/1,000 ML BAG IV SCH ×3 (04:14→15:24)
[2020-12-02] MEDS: PHENAZOPYRIDINE HCL 100 MG TAB PO PRN (06:02)
[2020-12-02 06:48] LABS: Basophils # (auto) 0.04 K/uL (0-0.2); Basophils % (auto) 0.3 %; Eosinophils # (auto) 0.35 K/uL (0-0.5); Eosinophils % (auto) 2.7 %; Hematocrit (blood only) 41.9 % (37-47); Hemoglobin 13.5 g/dL (12.0-16.0); Immature Granulocytes # (auto) 0.02 K/uL (0.00-0.02); Immature Granulocytes % (auto) 0.2 %; Lymphocytes # (auto) 4.04 K/uL (1.2-3.4); Lymphocytes % (auto) 31.2 %; Mean Corpuscular Hgb Conc 32.2 g/dL (32-36); Mean Corpuscular Volume 90.1 fL (80-100); Mean Platelet Volume 9.8 fL (7.4-10.4); Monocytes # (auto) 0.72 K/uL (0.11-0.59); Monocytes % (auto) 5.6 %; Neutrophils # (auto) 7.78 K/uL (1.4-6.5); Platelet Count 440 K/uL (130-400); RDW Coefficient of Variation 12.5 % (11.5-14.5); RDW Standard Deviation 41.3 fL (36.4-46.3); Red Blood Count 4.65 M/uL (4.2-5.4); White Blood Count 12.95 K/uL (4.8-10.8)
[2020-12-02 07:11] LABS: BUN Creatinine Ratio 12.1 (10-20); Calcium 8.4 mg/dl (8.5-10.1); Creatinine Clr Calc Pharmacy 80.9 ml/min; Est GFR (African American) 84.1 ml/min; Est GFR (Non-African American) 72.6 ml/min; Potassium 4.2 mmol/L (3.5-5.1)
[2020-12-02 07:23] LABS: Albumin Globulin Ratio 0.7 (0.9-2); Bilirubin,Total 0.3 mg/dl (0.2-1); Globulin 4.2 gm/dl (2.5-4.0); Total Protein 7.2 gm/dl (6.4-8.2)
[2020-12-02] MEDS: GABAPENTIN 400 MG CAP PO SCH ×2 (08:19→12:07)
[2020-12-02] MEDS: MULTIVITAMIN TAB PO SCH (08:20)
[2020-12-02] MEDS: MAGNESIUM OXIDE 400 MG TAB PO SCH (08:21)
[2020-12-02] MEDS: modafiniL 100 MG TAB PO SCH (08:21)
--- NOTE | 2020-12-02 08:54 | Urology Progress Note ---
Date of Service December 02, 2020 Assessment & Plan (1) Calculus of proximal left ureter: (2) S/P ureteral stent placement: 50 yo F POD #1 s/p cystoscopy with meatal dilation and left stent placement with Dr. Saul. - Doing well, progressing as expected - Afebrile, lab work reviewed - WBC improved to 12.95, creatinine 0.92 - Final UC&S showed moderate counts of probable mixed cammy, on IV Ceftriaxone during admission - Tolerating ureteral stent with mild bother - Okay to discharge to home from perspective (with Coulter in place) when medically stable - Recommend d/c to home with short course of antibiotics, Tamsulosin, prn Pyridium, prn Oxybutynin, and prn pain medication - Maintain Coulter catheter for 3-5 days, will arrange voiding trial outpatient - Expected clinical course reviewed, all questions answered - Will arrange outpatient follow-up with our service for definitive stone management Thank you for allowing us to participate in the acute care of Ms. Arboleda. Please reconsult us with additional questions, concerns or changes in patient status. Admission and Anticipated Discharge Date Admission Date: November 30, 2020 Subjective 50 yo F POD #1 s/p Cystoscopy with meatal dilation and left stent placement with Dr. Saul. Patient seen and examined at bedside this AM. She is awake, alert and sitting up in bed. No issues overnight. Notes mild flank/abdominal discomfort. Tolerating Coulter catheter - intact, patent, and draining. Occasional nausea, no vomiting. No fever or chills. Chart review: Afebrile, Creatinine 0.92, WBC 12.95, Hgb 13.5. UC&S moderate counts of probable mixed cammy. On IV Ceftriaxone. Review of Systems Constitutional: as per Subjective / HPI Gastrointestinal: as per Subjective / HPI Genitourinary: as per Subjective / HPI Physical Exam Constitutional: well developed and well nourished; no acute distress and not ill appearing Respiratory: normal respiratory effort and able to speak in complete sentences; no respiratory distress and no labored breathing Cardiovascular: Extremities: no pedal edema Gastrointestinal (Abdomen): Inspection/Auscultation: abdomen normal to inspection; abdomen not distended Percussion/Palpation: abdomen soft; abdomen nontender and no guarding Musculoskeletal: Head/Neck/Chest: normocephalic and head atraumatic Skin: Warm and dry Neurologic: moves all extremities and awake Psychiatric: Orientation: alert and oriented x 3 Genitourinary: no CVA tenderness Coulter intact, patent, draining yellow/orange urine Results & Data ([facility]) Vital Signs (Past 12 Hours) Vital Signs Temp Pulse Pulse Resp BP Pulse Ox 12/02/20 07:48 36.8 C 100 H 16 138/87 92 12/02/20 03:40 36.7 C 96 H 17 143/83 H 93 12/01/20 22:26 36.8 C 80 17 132/81 95 PG Care Time/CCT Total # of Minutes Spent Total Time Spent with Patient: Total time spent is greater than 50% in coordination of care (as documented) at patient's floor/unit and/or counseling patient: Coding Level of Care Code 55491 Subseq Hosp Care Lvl 2 Diagnoses Calculus of proximal left ureter N20.1 S/P ureteral stent placement Z96.0
--- NOTE | 2020-12-02 13:40 | Discharge Summary ---
Date of Service December 02, 2020 Admission HPI Per Admitting Provider The patient is a 50-year-old female with a past medical history including multiple sclerosis, family history of mother with kidney stones, who presents to the emergency department with above symptoms. Work-up in the emergency department included a CT scan of abdomen pelvis which showed an 8 mm proximal left ureteral calculus and mild left hydronephrosis. There was also noted a prominent lower uterine segment, with recommendation for outpatient BACK SEWER assessment Principal Diagnosis left ureterolithiasis, Meatal stenosis Discharge Exam Constitutional WD/WN, vitals as above Eyes + anicteric sclerae Neck trachea midline, no thyromegaly Respiratory normal respiratory effort, lungs clear to auscultation Cardiovascular RRR, no murmur, no edema Chest (Breasts) Chest: normal inspection of chest Gastrointestinal (Abdomen) normal bowel sounds, soft, nontender, no hepatosplenomegaly Musculoskeletal Extremities: extremities normal to inspection; no cyanosis and no clubbing Skin no rashes, warm and dry Neurologic moves all extremities and awake; no focal motor deficits Psychiatric A+Ox3, euthymic affect Genitourinary Coulter in place with clear yellow urine Lymphatic no lymphedema Discharge Data Allergies Allergy/AdvReac Type Severity Reaction Status Date / Time No Known Allergies Allergy Verified 11/30/20 16:09 Consultations 11/30/20 16:35 ED Decision to Admit Stat 11/30/20 19:49 Consult Urology Routine Procedures Performed Operation Date: 12/01/20 10:00 Actual Procedures p Left Stent Placement(Left) - Can Saul DO s Cystoscopy Left Retrograde Pyelogram, (Left) - DO kaylie Christopher Meatal Dilation, - Can Saul DO Ordered Studies 11/30/20 14:37 CT abd pelvis wo con Stat 12/01/20 FL retrograde includes kub Routine Abdomen/Pelvis CT 11/30/20 14:37 CT SCAN OF THE ABDOMEN AND PELVIS WITHOUT CONTRAST CLINICAL HISTORY: L flank pain dysuria COMPARISON STUDY: No previous studies for comparison. TECHNIQUE: CT scan of the abdomen and pelvis was performed from the lung bases to the proximal femurs. Images are reviewed in the axial, sagittal, and coronal planes. IV contrast was not administered for this examination. A dose lowering technique was utilized adhering to the principles of ALARA. CT DOSE: 474.44 mGy.cm FINDINGS: Lower chest: The heart is normal in size and configuration, without pericardial effusion. The lung bases and pleural spaces are clear. Liver: The unenhanced liver is normal in size, contour, and attenuation. There is no intrahepatic biliary ductal dilatation. Gallbladder: Is surgically absent Spleen: Normal in size and attenuation. Pancreas: Unremarkable. Adrenal glands: Unremarkable. Kidneys: The unenhanced kidneys are normal in. No hydronephrosis or nephrolithiasis is seen on the right. Mild hydronephrosis is seen within left kidney as well as calculus within inferior aspect of the left renal pelvis. There is 8mm calculus within proximal left ureter is seen. Distal aspect of the left ureter is nondilated.. Bowel: Bowel loops are nondilated. Appendix is not well seen. Peritoneum: There is no intraperitoneal free air or abdominal ascites. Vasculature: The abdominal aorta is normal in course and caliber. Adenopathy: None. Pelvic viscera: Urinary bladder is partially decompressed which limits evaluation. There is prominent, nodular lower uterine segment is seen. Evaluation is limited on current nondedicated exam. Skeletal structures: Multilevel Schmorl nodes are seen. Sclerotic lesion is seen within right ischial bone (3/401) and might represent enostosis versus other etiology. IMPRESSION: 1. 8 mm obstructive calculus within proximal aspect of the left urinary collecting system associated with minimal hydronephrosis on the left. Also calculus is seen within left renal pelvis. 2. Prominent lower uterine segment. Evaluation is limited on this nondedicated exam. Please correlate above-mentioned findings with BACK SEWER evaluation on n onemergency basis. ACT 112: Positive. There are findings on this exam that require communication between the performing entity and the patient following Patient Test Result Information Act ([place] Act 112) guidelines. The above report was generated using voice recognition software. It may contain grammatical, syntax or spelling errors. Electronically signed by: Pepper Munguia DO 11/30/2020 4:01 PM Retrograde Pyelogram 12/01/20 00:00 FL retrograde includes kub HISTORY: 50 years-old Female LEFT STENT PLACEMENT STATUS post placement of a left ureteral stent COMPARISON: CT abdomen pelvis 11/30/2020 TECHNIQUE: 4 spot fluoroscopic views of the left abdomen were obtained utilizing 27.7 seconds fluoroscopy time FINDINGS: Images demonstrate placement of a left ureteral stent which appears to be in satisfactory positioning. There is no significant hydronephrosis. IMPRESSION: Fluoroscopic assistance as above. ACT 112: Negative or not required by law. The above report was generated using voice recognition software. It may contain grammatical, syntax or spelling errors. Electronically signed by: Chivo Pinedo M.D. 12/01/2020 11:38 AM Hospital Course (1) Calculus of proximal left ureter: 8 mm proximal left ureteral calculus/mild left hydronephrosis- now s/p meatal dilatation and left ureteral stent placement Appreciate Urology management WBC count elevated but no fevers, college or university registrar normal. May be from stress response. Ur cx with mixed cammy but will treat empirically with ceftriaxone here and keflex x 7 more days after discharge dc to home with Coulter in place for 3-5 more days for urethral stricture continue FLomax and can use oxybutynin prn spasms, pyridium prn dysuria, percocet prn pain f/u with Urol in 3-5 days (2) Hydronephrosis, left: See above (3) Multiple sclerosis: Continue usual medications: Duloxetine, gabapentin, modafinil, mag oxide, riboflavin and HRT. (4) Abnormal uterine bleeding: and abnormality of lower uterine segment seen on CT, may be fibroids advised f/u with BACK SEWER outpt Dispo-stable for dc to home Total Time Total Time Spent Total Time Spent (In Minutes): 35 min Total Time Includes: Examination of the Patient, Discharge Planning and Medication Reconciliation Discharge Plan Discharge Items Patient Disposition: Home - Self-Care Reason For Visit: PROX L URETERAL STONE, MILD L HYDRONEPHROSIS Discharge Diagnosis: Left ureterolithiasis, meatal stenosis Condition on Discharge: Fair Activity: Resume your previous activity Non-emergency contact: Primary Care Provider and Urologist Call non-emergency contact if: you have any medication questions, your symptoms worsen, your pain is not controlled and you have a fever Follow-up/Referrals: Can Saul DO [Physician] - (Follow up within 3-5 day for removal of Coulter catheter) PCP,NO [Primary Care Provider] - (Follow up within 1-2 weeks.) Diet: Regular Ambulatory Orders: XR KUB/Abdomen 1 view (Routine) Timeframe: 1 Week Location: Determined by Patient Ordered By: Melva Jimenez Attending Provider Instructions: Please finish out the antibiotics in case of UTI as prescribed. Take the tamsulosin (Flomax) until stent removed. You can oxycodone as needed for pain, oxybutynin as needed for bladder spasms, as well as Pyridium for burning with urination as needed. You will follow up with the Urologist in 3-5 day to have your catheter removed. Please follow up with your Jack Spinner for your abnormal vaginal bleeding. Pending Studies at Discharge: No Stand-Alone Forms: My [facility] Medications and DC Order Prescriptions: New tamsulosin 0.4 mg Capsule 0.4 mg PO HS Qty: 10 RF: 0 phenazopyridine [Pyridium] 100 mg Tablet 100 mg PO TID PRN (Reason: bladder pain) Qty: 10 RF: 0 cephalexin 500 mg capsule 500 mg PO BID 7 Days Qty: 14 RF: 0 oxybutynin chloride 5 mg tablet 5 mg PO BID PRN (Reason: bladder spasms) Qty: 10 RF: 0 oxycodone-acetaminophen [Percocet] 5-325 mg tablet 1 tab PO Q6H PRN (Reason: pain) Qty: 10 RF: 0 docusate sodium [Colace] 100 mg capsule 100 mg PO BID PRN (Reason: constipation) Qty: 14 RF: 0 Continued multivitamin Tablet 1 tab PO DAILY RF: 0 gabapentin 400 mg capsule 400 mg PO QID RF: 0 modafinil [Provigil] 200 mg Tablet 200 mg PO DAILY RF: 0 duloxetine 60 mg capsule,delayed release(DR/EC) 60 mg PO DAILY RF: 0 levonorgestrel-ethinyl estrad 90-20 mcg (28) tablet 1 tab PO DAILY RF: 0 riboflavin (vitamin B2) 400 mg Tablet 400 mg PO DAILY RF: 0 magnesium oxide 400 mg magnesium Tablet 400 mg PO DAILY RF: 0 Discharge Orders: Discharge Order (Routine); Ordered 12/02/20 Ordered By: Rachelle Colon Admission Data Admit Date/Time: 11/30/20 17:25 Attending Provider: Rachelle Colon Admit Provider: Todd Vargas Primary Care Provider: PCP,NO Other Providers: Todd Vargas ; Parviz Jones Coding Level of Care Code D/C DAY MANAGEMENT >30 MINS Diagnoses Calculus of proximal left ureter N20.1 Hydronephrosis, left N13.30 Multiple sclerosis G35 Abnormal uterine bleeding N93.9
== END 2020-12-02 16:45 | disposition home or self-care (01) | DRG 661 ==
LOC: ED 14:17 → SUATTDRO 17:25 → 3W 17:25